=== PATIENT | male | born 1950 | race Caucasian/White ===

== ENCOUNTER 2020-12-23 16:20 | Emergency (ER) | payer MEDICARE, SELFPAY ==
[2020-12-23 16:57] LABS: Hemoglobin 17.2 g/dL (14.0-18.0); Mean Corpuscular HGB CONC 33.2 g/dL (32.0-36.0); Mean Corpuscular Hemoglobin 31.1 pg (27.0-31.0); Mean Corpuscular Volume 93.8 fL (78.0-98.0); Mean Platelet Volume 9.2 fL (7.4-10.4); Platelet Count 190 thou/uL (130-400); RBC Distribution Width 13.3 % (11.5-14.5); Red Blood Cell (RBC) Count 5.51 mill/uL (4.70-6.10); White Blood Cell (WBC) Count 6.1 thou/uL (4.8-10.8)
[2020-12-23 17:24] LABS: Band 17 % (5-11); Lymphocytes 2 % (21-51); MDiff Complete? YES; Metamyelocyte 1 % (0-0); Monocytes 4 % (0-10); Neutrophil 75 % (42-75); Reactive Lymphocytes 1 % (0-10); Toxic Granulation SLIGHT; Vacuoles SLIGHT
[2020-12-23] MEDS ORDERED: Aspirin Chewable 81 MG TAB ONE (17:29)
[2020-12-23 17:31] LABS: CKMB 2.3 ng/mL (0-6.6)
[2020-12-23 17:38] LABS: SARS-CoV-2 NAA Rapid Test DETECTED (NotDetected)
[2020-12-23 17:59] LABS: Base Excess-Venous 0.9 mmol/L (-2.0 to 3.0); Bicarbonate (HCO3v) 27.5 mmol/L (22.0-28.0); CO2 Tension (PvCO2) 50.4 mmHg (42.0-51.0); Calcium, Ionized 1.05 mmol/L (1.15-1.33); Chloride 106 mmol/L (98-107); Hemoglobin - Calc 15.7 g/dL (14.0-18.0); Potassium 4.3 mmol/L (3.5-5.1); Sodium 144 mmol/L (138-145); T. Carbon Dioxide 29.1 mmol/L (22.0-28.0); vO2 Saturation-calc 72.9 % (60.0-85.0)
[2020-12-23] MEDS ORDERED: Azithromycin 500 MG VIAL ONE (18:57)
[2020-12-23] MEDS ORDERED: cefTRIAXone\\ROCEPHIN 1 GM VIAL ONE (18:57)
[2020-12-23] MEDS ORDERED: Enoxaparin Sodium 100 MG/ML SYRINGE ONE (18:57)
[2020-12-23] MEDS ORDERED: Albuterol 200 PUFF (6.7GM INHALER) ONE (18:57)
[2020-12-23] MEDS ORDERED: Dexamethasone 10 MG/ML VIAL ONE (18:57)
[2020-12-23] MEDS ORDERED: Sodium Chloride 0.9% 100 ML ONE (18:59)
== END 2020-12-23 19:09 | disposition short-term general hospital (02) ==
LOC: BURERS 16:20
DX: U07.1 COVID-19 (principal)
CPT/HCPCS: 0240U; 71045; 82330; 82435; 82553; 82803; 83690; 83880; 84132; 84295; 84484; 85025; 87040; 93005; 96372; 96374; 96375; J0456; J0696; J1100; J1650; J3490